=== PATIENT | male | born 1945 | race African-American/Black ===

== ENCOUNTER 2020-10-19 20:23 | Emergency (ER) | payer MEDICARE ==
[~2020-10-19] VITALS: Ht 172.7 cm; Wt 85.0 kg
[2020-10-19] MEDS ORDERED: VOLTAREN - GENE75 MG PO (22:27)
[2020-10-20 05:49] VITALS: BP 144/78
== END 2020-10-20 05:50 | disposition home or self-care (01) ==
LOC: ED 20:23
DX: M16.11 Unilateral primary osteoarthritis, right hip (principal)